=== PATIENT | male | born 1970 | race Caucasian/White ===

== ENCOUNTER 2022-04-02 08:40 | Observation (INO) ==
[~2022-04-02 08:40] MED LIST: Vancomycin 1,500 MG/265 ML IV.SOLN IVPB ONE
[2022-04-02] MEDS ORDERED: Famotidine 20 MG TABLET PO ONE (09:30)
[2022-04-02] MEDS ORDERED: *HR* OxyCODONE Immed Rel 5 MG TABLET PO ONE (09:30)
[2022-04-02] MEDS ORDERED: tiZANidine 4 MG TABLET PO SCH (09:30)
[2022-04-02] MEDS ORDERED: Clindamycin 900 MG/50 ML 900 MG/50 ML IV.SOLN IVPB ONE (09:52)
[2022-04-02] MEDS ORDERED: Ringers Solution, Lactated 1,000 ML IVC SCH ×2 (10:00→17:43)
[2022-04-02] MEDS ORDERED: Ondansetron 4 MG/2 ML VIAL IVP PRN ×2 (10:34→17:43)
[2022-04-02] MEDS ORDERED: *HR* HYDROmorphone PF 0.5 MG/0.5 ML SYRINGE IVP PRN (10:34)
[2022-04-02] MEDS ORDERED: *HR* FentaNYL (PF) 100 MCG/2 ML VIAL IVP PRN (10:34)
[2022-04-02] MEDS ORDERED: Albuterol 2.5 MG/3 ML NEBULIZER IH ONE (10:34)
[2022-04-02] MEDS ORDERED: Albuterol 2.5 MG/3 ML NEBULIZER IH PRN (10:34)
[2022-04-02] MEDS ORDERED: Lidocaine -MPF 2% 5 ML VIAL ONE (11:27)
[2022-04-02] MEDS ORDERED: Ondansetron 4 MG/2 ML VIAL ONE (11:27)
[2022-04-02] MEDS ORDERED: Lidocaine -MPF 4% 5 ML AMPUL ONE (11:27)
[2022-04-02] MEDS ORDERED: *HR* Succinylcholine 200 MG/10 ML VIAL IVP ONE (11:27)
[2022-04-02] MEDS ORDERED: *HR* Propofol 200 MG/20 ML VIAL IVP ONE (11:28)
[2022-04-02] MEDS ORDERED: *HR* Midazolam HCl 2 MG/2 ML VIAL ONE (11:28)
[2022-04-02] MEDS ORDERED: *HR* FentaNYL (PF) 100 MCG/2 ML VIAL ONE (11:28)
[2022-04-02] MEDS ORDERED: *HR* Remifentanil 2 MG VIAL IVP ONE (11:28)
[2022-04-02] MEDS ORDERED: Heparin 1,000 UNITS/500 mL 500 ML ONE (11:39)
[2022-04-02] MEDS ORDERED: EPHEDrine 50 MG/ML VIAL ONE (12:19)
[2022-04-02] MEDS ORDERED: Sugammadex Sodium 200 MG/2 ML VIAL IV ONE (13:29)
[2022-04-02] MEDS ORDERED: Vancomycin 1,500 MG/265 ML IV.SOLN IVPB ONE (14:00)
[2022-04-02] MEDS ORDERED: *HR* HYDROMORPHONE 2 MG/ML VIAL ONE (15:07)
[2022-04-02] MEDS ORDERED: Naloxone 0.4 MG/ML INJ IVP PRN (17:43)
[2022-04-02] MEDS ORDERED: *HR* HYDROcodone/Acet 5/325 mg TABLET PO PRN (17:43)
[2022-04-02] MEDS ORDERED: Acetaminophen 325 MG TABLET PO PRN (17:43)
[2022-04-02] MEDS: Gabapentin 400 MG CAPSULE PO SCH ×2 (18:04→22:02)
[2022-04-02] MEDS: *HR* OxyCODONE Immed Rel 5 MG TABLET PO PRN ×2 (18:04→23:19)
[2022-04-02] MEDS: Clindamycin 900 MG/50 ML 900 MG/50 ML IV.SOLN IVPB SCH (18:04)
[2022-04-02] MEDS: levETIRAcetam 250 MG TABLET PO SCH (19:37)
[2022-04-02] MEDS: Carbidopa/Levodopa 25/100 TABLET PO SCH (19:37)
[2022-04-03] MEDS: Clindamycin 900 MG/50 ML 900 MG/50 ML IV.SOLN IVPB SCH (01:19)
[2022-04-03] MEDS: *HR* OxyCODONE Immed Rel 5 MG TABLET PO PRN ×4 (05:25→19:32)
[2022-04-03] MEDS: Gabapentin 400 MG CAPSULE PO SCH ×4 (09:42→19:32)
[2022-04-03] MEDS: levETIRAcetam 250 MG TABLET PO SCH ×2 (09:42→19:32)
[2022-04-03] MEDS: Loratadine 10 MG TABLET PO SCH (09:42)
[2022-04-03] MEDS: Carbidopa/Levodopa 25/100 TABLET PO SCH ×2 (09:42→19:32)
[2022-04-03] MEDS: Acetaminophen 325 MG TABLET PO PRN (17:37)
[2022-04-03] MEDS: clonazePAM 0.5 MG TABLET PO PRN (19:42)
[2022-04-04] MEDS: *HR* OxyCODONE Immed Rel 5 MG TABLET PO PRN ×4 (03:45→20:25)
[2022-04-04] MEDS: clonazePAM 0.5 MG TABLET PO PRN ×2 (05:34→20:22)
[2022-04-04] MEDS: Loratadine 10 MG TABLET PO SCH (09:44)
[2022-04-04] MEDS: levETIRAcetam 250 MG TABLET PO SCH ×2 (09:49→20:21)
[2022-04-04] MEDS: Carbidopa/Levodopa 25/100 TABLET PO SCH ×2 (09:49→20:22)
[2022-04-04] MEDS: Gabapentin 400 MG CAPSULE PO SCH ×4 (09:49→20:22)
[2022-04-05] MEDS: *HR* OxyCODONE Immed Rel 5 MG TABLET PO PRN ×3 (03:49→14:32)
[2022-04-05] MEDS: Gabapentin 400 MG CAPSULE PO SCH ×3 (09:12→16:22)
[2022-04-05] MEDS: Carbidopa/Levodopa 25/100 TABLET PO SCH (09:12)
[2022-04-05] MEDS: Loratadine 10 MG TABLET PO SCH (09:13)
[2022-04-05] MEDS: levETIRAcetam 250 MG TABLET PO SCH (09:13)
[2022-04-05 10:28] VITALS: O2SAT 96
[2022-04-05] MEDS: Acetaminophen 325 MG TABLET PO PRN (13:21)
[2022-04-05 15:28] VITALS: BP 113/63; PULSE 71; TEMP 98.8
== END 2022-04-05 18:35 | disposition home health service (06) ==
LOC: 4WAOSI 08:40 → SDCAOSI 08:40 → 4WAOSI 17:32
PROVIDERS: ADMIT Orthopaedic Surgery Orthopaedic Surgery of the Spine; ATTEND Orthopaedic Surgery Orthopaedic Surgery of the Spine